=== PATIENT | male | born 1950 | race Caucasian/White ===

== ENCOUNTER → 2020-09-05 | Outpatient (CLI) | payer MEDICARE ==
--- NOTE | 2020-09-05 19:57 | Diagnostic Imaging Report ---
EXAM: Right hip at 4:02 INDICATION: Hip pain. AP and lateral views were obtained. COMPARISON: There are no prior studies available for comparison. FINDINGS: There is no fracture, dislocation or acute bony abnormality evident. 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 There also appears to be fairly severe degenerative disc and bony disease at L5-S1 and at least moderate degenerative disease at L4-L5. The soft tissues are unremarkable. IMPRESSION: 1. There is no evidence for an acute bony abnormality. 2. If clinical concern regarding an underlying abnormality persists, then MRI would be recommended for further study. Dictated by: Dictated on workstation # [id number]
== END ==
LOC: RAD FS 15:56
PROVIDERS: ATTEND Family Medicine
DX: M25.551 Pain in right hip (principal); Z87.891 Personal history of nicotine dependence
CPT/HCPCS: 73502

== ENCOUNTER → 2020-09-08 | Outpatient (CLI) | payer MEDICARE ==
[~2020-09-08] MED LIST: ALBU18HF2 INH; ASPI-1238 PO; ATOR80TA76 PO; CARV25TA PO; DIGO125T3 PO; DOXY100T2 PO; FURO40TA4 PO; MELO15TA39 PO; PRD20T PO; RT-ALBUINH INH; SACU1TAB7 PO
--- NOTE | 2020-09-08 15:10 | Diagnostic Imaging Report ---
EXAMINATION: CT Chest without contrast (lung screening). TECHNIQUE: Multiple contiguous axial images were obtained through the chest without the use of intravenous contrast according to lung cancer screening protocol. All CT scans use one or more of the following dose optimizing techniques: automated exposure control, MA and/or KvP adjustment based on a patient size and exam type, or iterative reconstruction. HISTORY: 45 pack year history of smoking. COMPARISON: None available. FINDINGS: There is no edema or pneumonia. No pleural effusion. No pneumothorax. No suspicious nodules. Mucus is present in the trachea. There is minimal bibasilar atelectasis. There is no axillary or supraclavicular lymphadenopathy. There is no mediastinal lymphadenopathy. Pacemaker is present. Left ventricle is markedly dilated. There are severe coronary artery calcifications. No pericardial effusion. Aorta is normal in caliber. Limited views of the upper abdomen are unremarkable. There are no suspicious osseous lesions. IMPRESSION: 1. No suspicious pulmonary nodules. LUNG-RADS CATEGORY: 1 MODIFIER: None. Dictated by: Dictated on workstation # [id number]
== END ==
LOC: RAD 14:45
PROVIDERS: ATTEND Family Medicine
DX: Z12.2 Encounter for screening for malignant neoplasm of respiratory organs (principal); F17.210 Nicotine dependence, cigarettes, uncomplicated; Z95.0 Presence of cardiac pacemaker

== ENCOUNTER 2020-09-13 12:19 | Emergency (ER) | payer MEDICARE ==
[~2020-09-13] VITALS: Ht 167.7 cm; Wt 75.4 kg
[2020-09-13] MEDS ORDERED: methylPREDNISolone 125 MG (Solu-MEDROL) VIAL IV STA (12:37)
--- NOTE | 2020-09-13 12:37 | ED Dyspnea ---
General Stated Complaint: SOB History of Present Illness Date Seen by Provider: Sep 13, 2020 Time Seen by Provider: 12:37 Initial Comments 70-year-old male presents with shortness of breath. Shortness of breath started last night. Patient reports he has a history of COPD and states he's supposed be taking inhalers. Patient had a CAT scan about 8 days ago due to a "smoking history" that did not show any acute abnormalities. Patient denies any increased cough, fevers chills nausea vomiting chest pain or other systemic complaints. Allergies and Home Medications Allergies Coded Allergies: No Known Drug Allergies (Unverified , 09/13/20) Home Medications Albuterol Sulfate 1 Puff Puff, 2 PUFF INH Q4H, (Reported) 1 PUFF = 90 MCG Albuterol Sulfate 18 Gm Hfa.aer.ad, 18 GM INH Q4H PRN for SHORTNESS OF BREATH Prescribed by: KERRY MCDOWELL on 09/13/20 1410 Aspirin 81 Mg Tablet.dr, 81 MG PO DAILY, (Reported) Atorvastatin Calcium 80 Mg Tablet, 80 MG PO DAILY, (Reported) Carvedilol 25 Mg Tablet, 25 MG PO BID, (Reported) Digoxin 125 Mcg Tablet, 125 MCG PO DAILY, (Reported) Doxycycline Hyclate 100 Mg Tablet, 100 MG PO BID Prescribed by: KERRY MCDOWELL on 09/13/20 1410 Furosemide 40 Mg Tablet, 40 MG PO NEEDED, (Reported) Meloxicam 15 Mg Tablet, 15 MG PO DAILY, (Reported) Prednisone 20 Mg Tab, 20 MG PO DAILY, (Reported) Prednisone 20 Mg Tab, 40 MG PO DAILY Prescribed by: KERRY MCDOWELL on 09/13/20 1410 Sacubitril/Valsartan 1 Each Tablet, 1 TAB PO BID, (Reported) Patient Home Medication List Home Medication List Reviewed: Yes Review of Systems Review of Systems Constitutional: No chills, No fever Respiratory: cough, short of breath, wheezing Cardiovascular: No chest pain, No palpitations Gastrointestinal: no symptoms reported Skin: no symptoms reported Psychiatric/Neurological: No Symptoms Reported Endocrine: No Symptoms Reported Past Aydcrub-Tsfqjd-Lviavd Hx Past Med/Social Hx: Reviewed Nursing Past Med/Soc Hx Patient Social History Recent Foreign Travel: No Contact w/Someone Who Travel: No Physical Exam Vital Signs Vital Signs - First Documented 09/13/20 13:26 Pulse Ox 90 O2 Delivery Room Air Capillary Refill : Height, Weight, BMI Height: '" Weight: lbs. oz. kg; BMI Method: General Appearance: Mild Distress, Thin Respiratory: No Accessory Muscle Use, No Respiratory Distress, Wheezing (mod erate diffuse) Cardiovascular: Regular Rate, Rhythm, No Edema Gastrointestinal: Non Tender, Soft Extremity: Normal Capillary Refill, Normal Inspection Neurologic/Psychiatric: Oriented x3, No Motor/Sensory Deficits, Normal Mood/Affect, map clerk II-XII Norm as Tested Skin: Normal Color, Warm/Dry Progress/Results/Core Measures Results/Orders Lab Results Laboratory Tests Test 09/13/20 13:15 Range/Units White Blood Count 11.0 4.3-11.0 10^3/uL Red Blood Count 3.93 L 4.35-5.85 10^6/uL Hemoglobin 12.2 L 13.3-17.7 G/DL Hematocrit 39 L 40-54 % Mean Corpuscular Volume 99 80-99 FL Mean Corpuscular Hemoglobin 31 25-34 PG Mean Corpuscular Hemoglobin Concent 31 L 32-36 G/DL Red Cell Distribution Width 14.2 10.0-14.5 % Platelet Count 146 130-400 10^3/uL Mean Platelet Volume 11.8 H 7.4-10.4 FL Immature Granulocyte % (Auto) 0 % Neutrophils (%) (Auto) 74 42-75 % Lymphocytes (%) (Auto) 13 12-44 % Monocytes (%) (Auto) 11 0-12 % Eosinophils (%) (Auto) 1 0-10 % Basophils (%) (Auto) 0 0-10 % Neutrophils # (Auto) 8.1 H 1.8-7.8 X 10^3 Lymphocytes # (Auto) 1.5 1.0-4.0 X 10^3 Monocytes # (Auto) 1.2 H 0.0-1.0 X 10^3 Eosinophils # (Auto) 0.1 0.0-0.3 10^3/uL Basophils # (Auto) 0.0 0.0-0.1 10^3/uL Immature Granulocyte # (Auto) 0.0 0.0-0.1 10^3/uL Sodium Level 141 135-145 MMOL/L Potassium Level 4.0 3.6-5.0 MMOL/L Chloride Level 105 98-107 MMOL/L Carbon Dioxide Level 30 21-32 MMOL/L Anion Gap 6 5-14 MMOL/L Blood Urea Nitrogen 25 H 7-18 MG/DL Creatinine 0.92 0.60-1.30 MG/DL Estimat Glomerular Filtration Rate > 60 BUN/Creatinine Ratio 27 Glucose Level 107 H 70-105 MG/DL Calcium Level 8.8 8.5-10.1 MG/DL Corrected Calcium 8.7 8.5-10.1 MG/DL Total Bilirubin 0.7 0.1-1.0 MG/DL Aspartate Amino Transf (AST/SGOT) 16 5-34 U/L Alanine Aminotransferase (ALT/SGPT) 16 0-55 U/L Alkaline Phosphatase 63 40-136 U/L Troponin I < 0.30 <0.30 NG/ML C-Reactive Protein 0.48 <0.50 MG/DL Total Protein 6.3 L 6.4-8.2 GM/DL Albumin 4.1 3.2-4.5 GM/DL Procalcitonin 0.01 <0.10 NG/ML My Orders Orders - KERRY MCDOWELL DO Cbc With Automated Diff (09/13/20 12:37) Comprehensive Metabolic Panel (09/13/20 12:37) Procalcitonin (Pct) (09/13/20 12:37) Coronavirus Sars-Cov-2 So 2018 (09/13/20 12:37) Troponin I Fs (09/13/20 12:37) Ekg Tracing (09/13/20 12:37) Monitor-Rhythm Ecg Trace Only (09/13/20 12:37) Albuterol/Ipra Inhalation Soln (Duoneb I (09/13/20 12:45) Methylprednisolone Sod Succ (Solu-Medrol (09/13/20 12:37) Svn Small Volume Nebulizer (09/13/20 12:37) Chest 1 View Ap/Pa Only (09/13/20 12:58) Crp Fs (09/13/20 13:15) Medications Given in ED Current Medications Medications Dose Ordered Sig/Renata Route Start Time Stop Time Status Last Admin Dose Admin Albuterol/ Ipratropium 3 ml ONCE ONCE INH 09/13/20 12:45 09/13/20 12:46 DC 09/13/20 13:26 3 ML Vital Signs/I&O 09/13/20 13:26 Pulse Ox 90 O2 Delivery Room Air Progress Progress Note : Time: 14:11 Progress Note Patient's symptoms improved significantly with breathing treatment and steroids. Patient presents patient precancerous with a COPD exacerbation. Patient's lab evaluation is otherwise negative. He will be discharged home with a refill for his Ventolin inhaler, steroids and doxycycline. He should follow-up with his primary care provider in 3-5 days. Diagnostic Imaging Diagonstic Imaging: Xray Plain Films/CT/US/NM/MRI: chest Comments [facility], [place] NAME: MYRIAM ORTIZ V [facility] REC#: [id number] PT STATUS: REG ER : 1950 PHYSICIAN: KERRY MCDOWELL DO ADMIT DATE: 09/13/20/ER FS Signed Date of Exam:09/13/20 CHEST 1 VIEW AP/PA ONLY INDICATION: Shortness of breath. EXAMINATION: Frontal chest obtained at 12:59 p.m. COMPARISON: There is no prior study for comparison. FINDINGS: There is cardiomegaly. Dual-lead pacemaker device is seen over the left chest wall with right atrium and left ventricular leads. There is minimal central vascular prominence. There is no focal infiltrate or pneumothorax or pleural fluid. IMPRESSION: Cardiomegaly and minimal central vascular prominence. No focal infiltrate or pneumothorax or pleural fluid. Pacemaker device in place. Dictated by: Dictated on workstation # [id number] Dict: 09/13/20 1315 Trans: 09/13/20 1322 [facility] [id number] Interpreted by: FALLON POLANCO MD Electronically signed by: FALLON POLANCO MD 09/13/20 1322 Reviewed: Reviewed by Me, Reviewed/Discussed Departure Impression Primary Impression: COPD exacerbation Disposition: 01 HOME, SELF-CARE Condition: Stable Departure-Patient Inst. Referrals: BONG NUÑEZ MD (PCP/Family) Primary Care Physician Patient Instructions: COPD Exacerbation, Adult ED Add. Discharge Instructions: Follow-up with your primary care provider in 3-5 days for recheck in today symptoms Scripts Doxycycline Hyclate (Doxycycline Hyclate) 100 Mg Tablet 100 MG PO BID, #20 TAB 0 Refills Prov: KERRY MCDOWELL DO 09/13/20 Prednisone (Prednisone) 20 Mg Tab 40 MG PO DAILY, #6 TAB 0 Refills Prov: KERRY MCDOWELL DO 09/13/20 Albuterol Sulfate (Ventolin Hfa) 18 Gm Hfa.aer.ad 18 GM INH Q4H PRN for SHORTNESS OF BREATH, #1 EA Prov: KERRY MCDOWELL DO 09/13/20 KERRY MCDOWELL DO Sep 13, 2020 12:37
[2020-09-13] MEDS ORDERED: RT-ALBUTEROL/IPRATROPIUM 3 ML (DUONEB) VIAL INH ONE (12:45)
--- NOTE | 2020-09-13 13:18 | Diagnostic Imaging Report ---
INDICATION: Shortness of breath. EXAMINATION: Frontal chest obtained at 12:59 p.m. COMPARISON: There is no prior study for comparison. FINDINGS: There is cardiomegaly. Dual-lead pacemaker device is seen over the left chest wall with right atrium and left ventricular leads. There is minimal central vascular prominence. There is no focal infiltrate or pneumothorax or pleural fluid. IMPRESSION: Cardiomegaly and minimal central vascular prominence. No focal infiltrate or pneumothorax or pleural fluid. Pacemaker device in place. Dictated by: Dictated on workstation # [id number]
[2020-09-13 13:33] LABS: BASOPHILS % (AUTO) 0 % (0-10); EOSINOPHILS % (AUTO) 1 % (0-10); HEMATOCRIT 39 % (40-54); HEMOGLOBIN 12.2 G/DL (13.3-17.7); LYMPHOCYTES % (AUTO) 13 % (12-44); MEAN CORPUSCULAR HEMOGLOBIN 31 PG (25-34); MEAN CORPUSCULAR HGB CONC 31 G/DL (32-36); MEAN CORPUSCULAR VOLUME 99 FL (80-99); MEAN PLATELET VOLUME 11.8 FL (7.4-10.4); MONOCYTES % (AUTO) 11 % (0-12); NEUTROPHILS % (AUTO) 74 % (42-75); PLATELET COUNT 146 10^3/uL (130-400)
[2020-09-13 13:34] LABS: EOSINOPHILS # (AUTO) 0.1 10^3/uL (0.0-0.3); LYMPHOCYTES # (AUTO) 1.5 X 10^3 (1.0-4.0); MONOCYTES # (AUTO) 1.2 X 10^3 (0.0-1.0); NEUTROPHILS # (AUTO) 8.1 X 10^3 (1.8-7.8)
[2020-09-13] MEDS ORDERED: SACU1TAB7 PO (13:42)
[2020-09-13] MEDS ORDERED: ASPI-1238 PO (13:42)
[2020-09-13] MEDS ORDERED: ATOR80TA76 PO (13:42)
[2020-09-13] MEDS ORDERED: RT-ALBUINH INH (13:42)
[2020-09-13] MEDS ORDERED: FURO40TA4 PO (13:42)
[2020-09-13] MEDS ORDERED: DIGO125T3 PO (13:42)
[2020-09-13] MEDS ORDERED: MELO15TA39 PO (13:42)
[2020-09-13] MEDS ORDERED: CARV25TA PO (13:42)
[2020-09-13] MEDS ORDERED: PRD20T PO ×2 (13:42→14:10)
[2020-09-13 13:55] LABS: ALANINE AMINOTRANSFERASE 16 U/L (0-55); ALKALINE PHOSPHATASE 63 U/L (40-136); BILIRUBIN,TOTAL 0.7 MG/DL (0.1-1.0); BUN/CREATININE RATIO 27; CALCIUM 8.8 MG/DL (8.5-10.1); CARBON DIOXIDE 30 MMOL/L (21-32); CHLORIDE 105 MMOL/L (98-107); CREATININE SERUM 0.92 MG/DL (0.60-1.30); GFR ESTIMATED > 60; GLUCOSE 107 MG/DL (70-105); SODIUM 141 MMOL/L (135-145)
[2020-09-13 13:56] LABS: ALBUMIN 4.1 GM/DL (3.2-4.5); TOTAL PROTEIN 6.3 GM/DL (6.4-8.2)
[2020-09-13] MEDS ORDERED: ALBU18HF2 INH (14:10)
[2020-09-13] MEDS ORDERED: DOXY100T2 PO (14:10)
[2020-09-13 14:25] VITALS: BP 125/66
== END 2020-09-13 14:25 | disposition home or self-care (01) ==
LOC: EDUNIT# 12:19 → ER FS 12:22
DX: J44.1 Chronic obstructive pulmonary disease with (acute) exacerbation (principal); Z20.828 Contact with and (suspected) exposure to other viral communicable diseases; Z79.52 Long term (current) use of systemic steroids; Z79.82 Long term (current) use of aspirin
CPT/HCPCS: 36415; 71045; 80053; 84145; 84484; 85025; 86141; 93041; 94640; U0002; 87635